=== PATIENT | male | born 1970 | race Caucasian/White ===

== ENCOUNTER 2020-07-22 12:56 | Emergency (ER) | payer OTHER ==
[2020-07-22 13:08] VITALS: BP 151/83; PULSE 64; TEMP 98.2; BMI 32.1
--- NOTE | 2020-07-22 13:12 | PDOC ---
History of Present Illness - General Chief Complaint: Pain Stated Complaint: RIGHT SIDED PAIN SINCE YESTERDAY Time Seen by Provider: 07/22/20 13:01 History Source: Patient Exam Limitations: No Limitations - History of Present Illness Initial Comments: 07/22/20 13:06 50 yo male no pmhx here with c/o right flank pain. started yesterday around 2 am. right flank radiating to groin and testicle. no f/c no dysuria. no hematuria. no n/v no mod factors. no trauma. no known h/o gallstones or renal stones. did not take anything for pain. Past History - Medical History Allergies/Adverse Reactions: Allergies Allergy/AdvReac Type Severity Reaction Status Date / Time No Known Allergies Allergy Unverified 07/22/20 13:00 Home Medications: Ambulatory Orders NK [No Known Home Medication] 07/22/20 Review of Systems - Review of Systems Constitutional: No: Chills, Fever HEENTM: No: Eye Pain, Tearing Respiratory: No: Cough, Shortness of Breath Cardiac (ROS): No: Chest Pain, Edema ABD/GI: No: Diarrhea, Nausea : No: Burning, Dysuria, Discharge Musculoskeletal: Yes: Back Pain Integumentary: No: Bruising, Change in Color Neurological: No: Headache, Paresthesia All Other Systems: Reviewed and Negative *Physical Exam - Vital Signs 07/22/20 13:12 awake alert lungs clear bilat heart rrr no mrg abd soft nt nd ext wwp. no cva tenderness. skin warm and dry. 2 + dp/ pt pulse bilat. alert oriented x 3. ED Treatment Course - LABORATORY CBC & Chemistry Diagram: 07/22/20 13:10 07/22/20 13:10 - RADIOLOGY Radiology Studies Ordered: Category Date Time Status SPIRAL- RENAL-STONE CT [CT] Stat CT Scan 07/22/20 13:03 Ordered Medical Decision Making - Medical Decision Making 07/22/20 13:13 pt with right flank pain , differential renal colic, pyelo neg fontaine's sign, appendicitis less likley as pt not tender. plan ct spiral scan, ua labs pt declined pain control. will reassess. 07/22/20 14:52 pt labs unremarkable. ua negative. ct with renal cyst and fatty liver, no ureteral colic. will treat alison bal dc home. kayla urbano. Discharge - Discharge Information Problems reviewed: Yes Clinical Impression/Diagnosis: Back pain Condition: Stable Disposition: HOME - Admission No - Follow up/Referral Referrals: Nuria Zhu MD [Primary Care Provider] - - Patient Discharge Instructions - Post Discharge Activity
[2020-07-22 13:43] LABS: ALBUMIN 4.5 g/dl (3.4-5.0); BILIRUBIN,TOTAL 1.2 mg/dl (0.2-1); CALCIUM 9.2 mg/dl (8.5-10); CREATININE 0.8 mg/dl (0.55-1.3); POTASSIUM 3.7 mmol/L (3.5-5.1); TOT PROT 7.3 g/dl (6.4-8.2)
[2020-07-22 13:46] LABS: BASO % 1.3 % (0-2.0); HEMATOCRIT 50.5 % (35.4-49); HEMOGLOBIN 17.6 GM/dl (11.7-16.9); LYMPH % 36.4 % (8-40); MCH 33.3 pg (25.7-33.7); MCHC 34.8 g/dl (32.0-35.9); MEAN CELL VOLUME 95.4 fl (80-96); MONO % 5.4 % (3.8-10.2); NEUT % 54.9 % (42.8-82.8); PLATELET COUNT 219 K/MM3 (134-434); WHITE BLOOD COUNT 7.3 K/mm3 (4.0-10.8)
[2020-07-22] MEDS ORDERED: IBUPROFEN 600 MG TABLET (FP) PO ONE ×2 (15:35→15:36)
== END 2020-07-22 15:41 | disposition home or self-care (01) ==
LOC: FER 12:56
DX: M54.9 Dorsalgia, unspecified (principal)
CPT/HCPCS: 36415; 74176-TC; 80053; 81003; 85025; 99285-25

== ENCOUNTER 2023-05-22 10:20 | Emergency (ER) | payer OTHER ==
[2023-05-22 10:39] VITALS: BP 142/86; PULSE 67; RESP 18; TEMP 98.7; BMI 32.1
[2023-05-22] MEDS ORDERED: IBUPROFEN 600 MG TABLET (FP) PO ONE ×2 (10:44→10:48)
[2023-05-22] MEDS ORDERED: LIDOCAINE 5% TOPICAL PATCH TP ONE (11:57)
[2023-05-22] MEDS ORDERED: LIDOCAINE 5% TOPICAL PATCH ONE (12:00)
[2023-05-22] MEDS ORDERED: LIDOCAINE PATCH REMOVAL MC SCH (22:00)
== END 2023-05-22 12:05 | disposition home or self-care (01) ==
LOC: FER 10:20
DX: S39.012A Strain of muscle, fascia and tendon of lower back, initial encounter (principal); W01.198A Fall on same level from slipping, tripping and stumbling with subsequent striking against other object, initial encounter; Y92.9 Unspecified place or not applicable
CPT/HCPCS: 71111-TC-FY; 72070-TC-FY; 99284-25